=== PATIENT | female | born 1990 | race Caucasian/White ===

== ENCOUNTER 2020-10-14 14:31 | Outpatient (REF) | payer OTHER, SELFPAY | END 2020-10-14 14:32 | disposition home or self-care (01) | LOC: HO.HMGCLDS 14:31 | PROVIDERS: PCP Internal Medicine; Visit Provider Internal Medicine | DX: Z20.822 Contact with and (suspected) exposure to COVID-19 (principal) | CPT/HCPCS: C9803; U0003; U0005 ==

== ENCOUNTER 2023-06-21 15:09 | Outpatient (AMB) | payer OTHER, SELFPAY ==
--- NOTE | 2023-06-21 15:13 | AM.OFFWIN_ITS ---
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 Patient Tobacco Use Status: Never used Tobacco Allergies No Known Allergies Allergy (Verified 06/21/23 15:15) Do you need a note to return to daycare/school/sports/work: No HPI HPI Comments History of Present Illness Details 33 y/o female patient who presents to [facility] in clinic with c/o sore- throat, headaches and blocked ears. Reports that symptoms started last Sunday. 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 Denies fevers, chills, nausea or vomiting. PFS Social History (System 12/29/22 @ 13:59 by Marylin High) Patient Tobacco Use Status: Never used Tobacco Physical Exam Vital Signs: Last Vital Signs Temp 98.6 F 06/21/23 15:16 Pulse 86 06/21/23 15:16 BP 140/94 H 06/21/23 15:16 Pulse Ox 97 06/21/23 15:16 Oxygen Delivery Method Room Air 06/21/23 15:16 BMI result Body Mass Index 24.8 Const General: comfortable and no acute distress Orientation/consciousness: patient oriented x3 HEENT Head: Yes normocephalic Ears: external ears normal and TM abnormal with fluid behind the TM bilateral; not bulging, not bullous, not with effusion, not erythematous, not perforated and not retracted General nose exam: Abnormal mucous membranes and turbinates present pale Face and sinus: Yes sinuses nontender Mouth: moist mucous membranes Throat: Yes posterior oropharynx normal and Yes abnormal tonsil (swollen Tonsils Grade +1) Resp Effort & Inspection: normal respiratory effort, able to speak in complete [place] and no cough Auscultation: clear to auscultation bilaterally, no crackles, no rales, no rhonchi and no wheezes Cardio Rate: regular rate Rhythm: regular rhythm Neuro General: patient oriented x3 Assessment & Plan Assessment & Plan (1) Acute pharyngitis: Code(s): J02.9 - Acute pharyngitis, unspecified Qualifiers: Pharyngitis/tonsillitis etiology: unspecified etiology Qualified Code(s): J02.9 - Acute pharyngitis, unspecified Plan: - OTC cold remedies - Take medications as directed - Rest and hydrate with plenty warm fluids. Medications: New acetaminophen 1,000 mg (2 x 500 mg) PO Q6H PRN 30 caps 0RF pain (scale score 4- 6) J02.9 - Acute pharyngitis, unspecified amoxicillin 500 mg PO BID 10 days 20 caps 0RF J02.9 - Acute pharyngitis, unspecified pseudoephedrine HCl ER (Sudafed 12 Hour) 120 mg PO Q12H PRN 20 tabs 0RF nasal congestion J02.9 - Acute pharyngitis, unspecified Coding Level of Care Code Est Pt Level 3 (56157) Diagnoses Acute pharyngitis, unspecified etiology J02.9 Pharyngitis/tonsillitis etiology: unspecified etiology Time Spent (min) 15
[2023-06-21 15:16] VITALS: BP 140/94; PULSE 86; TEMP 37; O2SAT 97; BMI 24.8
== END 2023-06-21 16:54 | disposition home or self-care (01) ==
PROVIDERS: PCP Internal Medicine; Visit Provider Nurse Practitioner Family
DX: J02.9 Acute pharyngitis, unspecified (principal)
CPT/HCPCS: 99213